=== PATIENT | male | born 1955 | race Caucasian/White ===

== ENCOUNTER 2021-05-26 12:52 | Inpatient (IN) | payer MEDICARE, MEDICAID ==
[~2021-05-26] VITALS: Ht 167.6 cm; Wt 76.7 kg
[2021-05-26] MEDS ORDERED: ASPIRIN 81MG TABLET PO ONE (13:30)
[2021-05-26 14:36] LABS: BASOPHILS % 0.6 % (0.0-2.0); EOSINOPHILS % 0.1 % (0.0-5.0); HEMATOCRIT. 50.4 % (42.0-52.0); HEMOGLOBIN. 16.5 g/dL (14.0-18.0); LYMPHOCYTES % 10.3 % (20.0-50.0); MEAN CORPUSCULAR HEMOGLOBIN 29.7 pg (28.0-32.0); MEAN CORPUSCULAR VOLUME 90.5 fL (80.0-94.0); MEAN PLATELET VOLUME 9.4 fl (7.4-10.4); MONOCYTES % 6.2 % (2.0-8.0); NEUTROPHILS % 82.8 % (40.0-76.0); PLATELET 129 x1000/uL (130-400); RED BLOOD CELL COUNT 5.56 mill/uL (4.7-6.1); RED CELL DISTRIBUTION WIDTH 13.7 % (11.6-14.6)
[2021-05-26 14:44] LABS: CHLORIDE 95 mEq/L (98-107)
[2021-05-26 23:40] VITALS: BP 140/79
[2021-05-27] MEDS ORDERED: PIOG15TA66 PO (02:52)
[2021-05-27] MEDS ORDERED: ATOR20TA65 PO (02:52)
[2021-05-27] MEDS ORDERED: AMLO5TAB88 PO (02:52)
[2021-05-27] MEDS ORDERED: BENA40TA9 PO (02:52)
[2021-05-27] MEDS ORDERED: ASPI-1406 PO ×2 (02:52→16:38)
[2021-05-27] MEDS ORDERED: EMPA10TA PO (02:52)
[2021-05-27] MEDS ORDERED: METF-414 PO (02:52)
[2021-05-27] MEDS ORDERED: BISO1TAB35 PO (02:52)
[2021-05-27] MEDS ORDERED: ACETAMINOPHEN 650MG/20.3ML UDC PO PRN (05:30)
[2021-05-27] MEDS ORDERED: DEXTROSE 50% WATER 50ML SYRINGE IV PRN (05:30)
[2021-05-27] MEDS ORDERED: SODIUM CHLORIDE 0.9% 1,000 ML IV SCH (06:00)
[2021-05-27] MEDS: BLOOD SUGAR DIAGNOSTIC STRIP TEST SCH ×3 (06:45→17:11)
[2021-05-27] MEDS ORDERED: ENOXAPARIN 40MG/0.4ML SYR SUBCUT SCH (09:00)
[2021-05-27] MEDS ORDERED: ASPIRIN 81MG TABLET PO SCH (09:00)
[2021-05-27 09:38] VITALS: BP 142/77
[2021-05-27] MEDS: INSULIN LISPRO 100 UNITS/ML SUBCUT SCH ×3 (10:09→17:14)
[2021-05-27 13:33] LABS: BASOPHILS % 0.5 % (0.0-2.0); EOSINOPHILS % 0.2 % (0.0-5.0); HEMATOCRIT. 48.6 % (42.0-52.0); HEMOGLOBIN. 16.3 g/dL (14.0-18.0); LYMPHOCYTES % 23.2 % (20.0-50.0); MEAN CORPUSCULAR HEMOGLOBIN 30.2 pg (28.0-32.0); MEAN CORPUSCULAR VOLUME 90.1 fL (80.0-94.0); MEAN PLATELET VOLUME 9.6 fl (7.4-10.4); MONOCYTES % 6.5 % (2.0-8.0); NEUTROPHILS % 69.6 % (40.0-76.0); PLATELET 137 x1000/uL (130-400); RED BLOOD CELL COUNT 5.39 mill/uL (4.7-6.1); RED CELL DISTRIBUTION WIDTH 13.6 % (11.6-14.6)
[2021-05-27 13:37] LABS: CHLORIDE 99 mEq/L (98-107)
[2021-05-27 13:43] LABS: PROTHROMBIN TIME 10.9 sec (9.6-11.0)
[2021-05-27 13:44] LABS: CREATINE KINASE MB FRACTION < 1.0 ng/mL (0.5-3.6)
[2021-05-27] MEDS ORDERED: CEFTRIAXONE 1 G PREMIX 50 ML IV SCH (13:45)
[2021-05-27 13:47] LABS: CREATINE KINASE 181 IU/L (39-308); LDL CHOLESTEROL 66 mg/dL (5-100)
[2021-05-27 13:48] LABS: T4 FREE 1.22 ng/dL (0.76-1.46)
[2021-05-27 13:49] LABS: HDL CHOLESTEROL 25 mg/dL (40-59)
[2021-05-27] MEDS ORDERED: AZITHROMYCIN 500 MG TABLET PO SCH (14:00)
[2021-05-27] MEDS ORDERED: CEFTRIAXONE 1,000 MG in DEXTROSE 5% WATER 50 ML IV SCH (15:00)
[2021-05-27 15:53] LABS: CLARITY URINE CLEAR (CLEAR); COLOR URINE YELLOW (YELLOW); KETONES URINE 1+ (NEGATIVE); LEUKOCYTE ESTERASE URINE NEGATIVE (NEGATIVE); NITRITE URINE NEGATIVE (NEGATIVE); OCCULT BLOOD URINE NEGATIVE (NEGATIVE); PROTEIN URINE TRACE (NEGATIVE); SPECIFIC GRAVITY URINE 1.033 (1.005-1.030); UROBILINOGEN URINE 0.2 E.U./dL (0.2-1.0)
[2021-05-27 16:09] LABS: *BARBITURATES SCREEN URINE NEGATIVE (NEGATIVE)
[2021-05-27 16:10] LABS: *AMPHETAMINES SCREEN URINE NEGATIVE (NEGATIVE); *BENZODIAZEPINES SCREEN URINE NEGATIVE (NEGATIVE); *COCAINE SCREEN URINE NEGATIVE (NEGATIVE); METHADONE URINE SCREEN NEGATIVE (NEGATIVE); OPIATES URINE SCREEN NEGATIVE (NEGATIVE)
[2021-05-27 16:11] LABS: CANNABINOID URINE SCREEN NEGATIVE (NEGATIVE); PHENCYCLIDINE URINE SCREEN NEGATIVE (NEGATIVE)
[2021-05-27] MEDS ORDERED: AMOX-424 MT (16:38)
[2021-05-27 17:00] VITALS: BP 160/93
[2021-05-27 17:02] VITALS: BP 148/94
[2021-05-27 17:04] LABS: CREATINE KINASE 168 IU/L (39-308)
[2021-05-27 17:05] VITALS: BP 143/88
[2021-05-27 17:05] LABS: CREATINE KINASE MB FRACTION < 1.0 ng/mL (0.5-3.6)
[2021-05-27 17:36] VITALS: BP 149/88
== END 2021-05-27 18:22 | disposition home or self-care (01) | DRG 73 ==
LOC: ER 13:11 → 5WST 20:12 → ENRESERV 22:57
PROVIDERS: ADMIT Internal Medicine; ATTEND Internal Medicine
DX: G90.8 Other disorders of autonomic nervous system (principal); J18.9 Pneumonia, unspecified organism; D69.6 Thrombocytopenia, unspecified; E11.65 Type 2 diabetes mellitus with hyperglycemia; E86.0 Dehydration; I10 Essential (primary) hypertension; Z20.822 Contact with and (suspected) exposure to COVID-19; R74.01 Elevation of levels of liver transaminase levels; R91.8 Other nonspecific abnormal finding of lung field; Z79.82 Long term (current) use of aspirin; Z79.84 Long term (current) use of oral hypoglycemic drugs
CPT/HCPCS: 36415; 71045; 80053; 80061; 80305; 81003; 82550; 82553; 82962; 83036; 83880; 84439; 84443; 84484; 85025; 87426; 93306; 93880; 93970; 99285; J0696; J1650; J7030; J7060